=== PATIENT | male | born 1980 | race Caucasian/White ===

== ENCOUNTER 2017-02-22 20:26 | Emergency (ER) | payer SELFPAY ==
[2017-02-22 21:04] LABS: APPEARANCE CLEAR (CLEAR); BILIRUBIN NEGATIVE (NEGATIVE); COLOR YELLOW (YELLOW); GLUCOSE NEGATIVE (NEGATIVE); KETONE NEGATIVE (NEGATIVE); NITRITE NEGATIVE (NEGATIVE); PROTEIN TRACE mg/dL (NEGATIVE); SPECIFIC GRAVITY 1.025 (1.005-1.020); UROBILINOGEN NORMAL (NORMAL)
[2017-02-22 21:12] LABS: BACTERIA FEW /hpf (NONE SEEN); CALCIUM OXALATE CRYSTALS OCC /hpf (NONE SEEN); EPITHELIAL CELLS OCC /hpf (0-5); HYALINE CAST OCC /lpf (NONE SEEN); MUCUS <1+ /lpf (NONE SEEN); RED CELLS - URINE OCC /hpf (0-5); WHITE CELLS - URINE 0-5 /hpf (0-5)
[2017-02-22 21:42] LABS: BASOPHILS 0.5 % (0-2); EOSINOPHILS 7.7 % (0-7); HEMATOCRIT 43.4 % (42.0-54.0); HEMOGLOBIN 14.8 g/dL (13.5-17.5); IMMATURE GRANULOCYTES 0.4 % (0-5); LYMPHOCYTES 25.2 % (15-50); MCH 30.5 pg (26.0-34.0); MCHC 34.1 g/dL (31.0-37.0); MCV 89.5 fL (80.0-100.0); MEAN PLATELET VOLUME 10.3 fL (7.4-10.4); MONOCYTES 10.5 % (2-11); NEUTROPHILS 55.7 % (40-80); PLATELET COUNT 231 10x3/uL (130-400); RBC 4.85 10x6/uL (4.20-6.10); WBC 12.7 10x3/uL (4.8-10.8)
[2017-02-22 22:00] LABS: ALBUMIN 3.5 g/dL (3.4-5.0); ANION GAP 10.7 mmol/L (8-16); BILIRUBIN - TOTAL 0.3 mg/dL (0.2-1.3); CALCIUM 8.7 mg/dL (8.5-10.1); CARBON DIOXIDE 30.9 mmol/L (21.0-32.0); CREATININE - SERUM 1.3 mg/dL (0.6-1.3); POTASSIUM - SERUM 3.6 mmol/L (3.5-5.1); PROTEIN - SERUM 6.3 g/dL (6.4-8.2)
== END 2017-02-22 22:10 | disposition home or self-care (01) ==
LOC: D.ER 20:26
PROVIDERS: Family Medicine
DX: L25.9 Unspecified contact dermatitis, unspecified cause (principal)

== ENCOUNTER 2017-02-28 18:11 | Inpatient (IN) | payer SELFPAY ==
[2017-02-28 20:00] LABS: HEMATOCRIT 41.5 % (42.0-54.0); HEMOGLOBIN 13.8 g/dL (13.5-17.5); MCH 29.9 pg (26.0-34.0); MCHC 33.3 g/dL (31.0-37.0); MCV 89.8 fL (80.0-100.0); MEAN PLATELET VOLUME 9.6 fL (7.4-10.4); PLATELET COUNT 254 10x3/uL (130-400); RBC 4.62 10x6/uL (4.20-6.10); RDW 13.4 % (11.5-14.5); WBC 30.3 10x3/uL (4.8-10.8)
[2017-02-28 20:10] LABS: ANION GAP 9.8 mmol/L (8-16); BILIRUBIN - TOTAL 0.26 mg/dL (0.2-1.3); CALCIUM 8.4 mg/dL (8.5-10.1); CARBON DIOXIDE 29.4 mmol/L (21.0-32.0); CREATININE - SERUM 1.2 mg/dL (0.6-1.3); POTASSIUM - SERUM 3.2 mmol/L (3.5-5.1); PROTEIN - SERUM 6.7 g/dL (6.4-8.2)
[2017-02-28 20:22] LABS: LYMPHOCYTES 20 % (15-50); MONOCYTES 1 % (2-11); NEUTROPHILS 77 % (40-80); PLATELET ESTIMATE NORMAL
[2017-03-01 01:48] VITALS: BMI 29.1
--- NOTE | 2017-03-01 01:53 | NUR ---
RECEIVED FROM ER VIA Betzaida JIANG-NS @200, IV ANTIBONICS WERE GIVEN IN ER, PT IS A&O, UP ADLIB, BED IS LOW, SRX2, CALL LIGHT IN REACH, WILL CONTINUE PLAN OF CARE
--- NOTE | 2017-03-01 04:04 | NUR ---
PT RESTING, GIRLFRIEND AT BEDSIDE, BED IS LOW, SRX2, CALL LIGHT IN REACH, WILL CONTINUE PLAN OF CARE
[2017-03-01 06:33] VITALS: BP 134/68
[2017-03-01 07:40] LABS: BASOPHILS 0.1 % (0-2); EOSINOPHILS 1.2 % (0-7); HEMATOCRIT 39.6 % (42.0-54.0); HEMOGLOBIN 13.5 g/dL (13.5-17.5); IMMATURE GRANULOCYTES 1.7 % (0-5); LYMPHOCYTES 11.3 % (15-50); MCH 30.1 pg (26.0-34.0); MCHC 34.1 g/dL (31.0-37.0); MCV 88.4 fL (80.0-100.0); MEAN PLATELET VOLUME 9.5 fL (7.4-10.4); MONOCYTES 10.4 % (2-11); NEUTROPHILS 75.3 % (40-80); PLATELET COUNT 275 10x3/uL (130-400); RBC 4.48 10x6/uL (4.20-6.10); RDW 13.3 % (11.5-14.5); WBC 32.7 10x3/uL (4.8-10.8)
[2017-03-01 07:46] LABS: CALC OSMOLALITY 266 mosm/kg (275-300); CALCIUM 7.6 mg/dL (8.5-10.1); CARBON DIOXIDE 25.4 mmol/L (21.0-32.0); CHLORIDE - SERUM 100 mmol/L (98-107); CREATININE - SERUM 1.1 mg/dL (0.6-1.3); GLUCOSE 104 mg/dL (74-106); POTASSIUM - SERUM 3.8 mmol/L (3.5-5.1); SODIUM 134 mmol/L (136-145); UREA NITROGEN 9 mg/dL (7-18); eGFR NON AFRICAN AMERICAN 81 mL/min (90-120)
[2017-03-01 09:09] VITALS: BP 143/80
[2017-03-01 12:42] VITALS: BP 145/79
--- NOTE | 2017-03-01 15:58 | NUR ---
ALERT AND ORIENTED X4. RESTING IN BED. RT ARM ELEVATED ON TWO PILLOWS. SWELLING, TENDERNESS, AND REDNESS ACCENDING FROM HAND TO NECK. FIRM AND HOT TO TOUCH. OOZING PURULENT DRAINAGE FROM TOP OF HAND AND AC. NOTIFY DR. SUH OF WORSENING CONDITIONS. ORDER TO CONSULT ORTHO PER . ULTRA SOUND OF UPPER EXTREMITIES ORDERED STAT PER AND RESULTS TO BE CALLED TO HIM. CONTINUE PAIN MANAGEMENT ORDERED. CONTINUE PLAN OF CARE. BED LOCKED AND LOW. CALL LIGHT IN REACH. TWO SIDERAILS UP.
[2017-03-01 16:39] VITALS: BP 146/88
[2017-03-01 19:00] VITALS: BP 178/90
--- NOTE | 2017-03-01 19:25 | NUR ---
RECEIVED REPORT, WILL ASSUME CARE OF PT, ULTRA SOND IN ROOM, WILL CONTINUE PLAN OF CARE
[2017-03-02] VITALS: BP 145/84; BP 152/84
--- NOTE | 2017-03-02 01:06 | NUR ---
COMPLAINS OF ARM PAIN, GAVE DIDULID ORDER
--- NOTE | 2017-03-02 05:15 | NUR ---
ASSESSMENT COMPLETE, SE FLOWSHEET, BED IS LOW, SRX2, CALL LIGHT IN REACH, WILL CONTINUE PLAN OF CARE
--- NOTE | 2017-03-02 06:13 | NUR ---
COMPLAINS OF HEADACHE, DOESN'T WANT DIDULID, GAVE ICE PACK
[2017-03-02 08:00] VITALS: BP 144/83
[2017-03-02 09:59] VITALS: BMI 37.1
--- NOTE | 2017-03-02 11:00 | NUR ---
ALERT AND ORIENTED X4. RESTING IN BED. INITIATE CONTACT ISOLATION PRECAUTIONS ORDERED. DENIES ANY NEEDS. RT ARM ELEVATED ON TWO PILLOWS. BED LOCKED AND LOW.
[2017-03-02 12:00] VITALS: BP 149/91
--- NOTE | 2017-03-02 14:00 | NUR ---
ALERT AND ORIENTED X4. RESTING IN BED. FAMILY AT BEDSIDE. RT CHEST HAIR TRIMMED. CVL DRESSING CHANGED. CONSENTS FOR PROCEDURE SIGNED ON CHART. PRE-OP CHECK LIST COMPLETE. DENIES ANY NEEDS. BED LOCKED AND LOW. CALL LIGHT IN REACH. TWO SIDERAILS UP.
[2017-03-02 16:00] VITALS: BP 158/98
--- NOTE | 2017-03-02 19:47 | NUR ---
RESUMED CARE OF PT, LYING IN BED RESPIRATIONS EVEN AND UNLABORED ON ROOM AIR. LEFT CVL INFUSING NS @ 75. RIGHT ARM IS RED WITH BLISTER LIKE SORES, PAIN 8:10. REQUESTS PAIN SHOT. WILL CONTINUE TO MONTIOR. CALL LIGHT IN REACH. SEE NURSE ASSESSMENT.
--- NOTE | 2017-03-02 20:30 | NUR ---
DILAUDID 1MG IVP FOR RIGHT ARM PAIN. WILL CONTINUE TO MONITOR. CALL LIGHT IN REACH.
[2017-03-02 20:45] VITALS: BP 147/92
[2017-03-03] VITALS (7 sets, daily range): BP systolic 102–155; BP diastolic 53–94
[2017-03-03 06:06] LABS: BASOPHILS 0.1 % (0-2); EOSINOPHILS 2.2 % (0-7); HEMOGLOBIN 12.7 g/dL (13.5-17.5); IMMATURE GRANULOCYTES 1.3 % (0-5); LYMPHOCYTES 10.7 % (15-50); MCH 29.7 pg (26.0-34.0); MCHC 33.4 g/dL (31.0-37.0); MEAN PLATELET VOLUME 9.3 fL (7.4-10.4); MONOCYTES 10.3 % (2-11); NEUTROPHILS 75.4 % (40-80); PLATELET COUNT 282 10x3/uL (130-400); RBC 4.27 10x6/uL (4.20-6.10); RDW 13.4 % (11.5-14.5); WBC 25.8 10x3/uL (4.8-10.8)
[2017-03-03 06:18] LABS: CALC OSMOLALITY 269 mosm/kg (275-300); CALCIUM 7.8 mg/dL (8.5-10.1); CARBON DIOXIDE 27.6 mmol/L (21.0-32.0); CHLORIDE - SERUM 100 mmol/L (98-107); GLUCOSE 116 mg/dL (74-106); POTASSIUM - SERUM 3.5 mmol/L (3.5-5.1); SODIUM 136 mmol/L (136-145); UREA NITROGEN 5 mg/dL (7-18); eGFR NON AFRICAN AMERICAN 90 mL/min (90-120)
--- NOTE | 2017-03-03 12:33 | NUR ---
ALERT AND ORIENTED X4. RESTING IN BED. EKG COMPLETE PLACED ON CHART. CONSENTS SIGNED ON CHART. DENIES SOB. RT ARM ELEVATED ON 2 PILLOWS. GIRL FRIEND AT BEDSIDE. CONTINUE PLAN OF CARE. BED LOCKED AND LOW. CALL LIGHT IN REACH. TWO SIDERAILS UP.
--- NOTE | 2017-03-03 15:42 | NUR ---
ALERT AND ORIENTED X4. PROCEDURE SCHEDULED ESTIMATED TIME TO START WHEN ASKED ANISTHESIA WAS 1430. CALL OR NOW AND ESTIMATED START TIME CHANGED TO 1630 OR 1700. PATIENT VERY UPSET DUE TO BEING NPO 03/02/17 ALL DAY AND DOCTOR CANCELLING PROCEDURE AT 1700 YESTERDAY. PATIENT BEEN NPO SINCE MIDNIGHT TODAY AND PROCEDURE YET TO HAPPEN. PATIENT STATES, "THIS IS MESSED UP AND I'M ABOUT TO GO TO [place] TO GET SOMETHING DONE," WHILE STORMING OUT OF ROOM. APOLOGIZE TO PATIENT AND TRY TO CALM PATIENT. PETEY CARVALHO CALLING SHRINK PIT OPERATOR. CONTINUE PLAN OF CARE AND SAFETY PRECAUTIONS.
--- NOTE | 2017-03-03 15:58 | NUR ---
RETURNS TO ROOM.
--- NOTE | 2017-03-03 17:06 | NUR ---
TAKEN TO PROCEDURE VIA BED.
--- NOTE | 2017-03-03 19:15 | NUR ---
RECIEVED TO ROOM 2111 FROM O.R. VIA BED. VITALS STABLE. DRSGS INTACT TO BACK OF NECK AND RIGHT ARM. NO BLEEDING NOTED. SANDWHICH TRAY AND LEMOM KLETSEL DEHE WINTUN SODA GIVEN AT PT REQUEST. PT CURRENTLY DENIES PAIN. FAMILY AT BE SIDE.
--- NOTE | 2017-03-03 20:36 | NUR ---
HS MED GIVEN WITH FRESH ICE WATER, PT RESTING WELL, RESPERATIONS EVEN AND UNLABORED. BDED LOW, CL IN REACH.
--- NOTE | 2017-03-03 22:05 | NUR ---
DILAUDID 1 MG GIVEN AT PT REQUEST FOR C/O PAIN TO RIGHT ARM.
[2017-03-04 00:46] VITALS: BP 119/69
--- NOTE | 2017-03-04 01:40 | NUR ---
LEFT ARM RED AND PT SCRATCHING AT IT. BENEDRYL 25 MG GIVEN PO FOR C/O ITCHING TO LEFT ARM.
[2017-03-04 04:25] VITALS: BP 121/88
--- NOTE | 2017-03-04 06:16 | OP ---
PATIENT NAME: CLIFTON LIPSCOMB MEDICAL RECORD: [id number] :81 LOCATION:D.M2 D.2112 ADMISSION DATE:03/01/17 SURGEON: ABEL WILLS MD DATE OF OPERATION: 03/03/2017 PREOPERATIVE DIAGNOSES: Multiple abscesses of the right upper extremity and neck posterior right aspect. POSTOPERATIVE DIAGNOSES: Multiple abscesses of the right upper extremity and neck posterior right aspect. PROCEDURE: Excisional debridement of 6 different locations on the right upper extremity and neck. SURGEON: Abel Wills MD. ANESTHESIA: General. INTRAOPERATIVE COMPLICATIONS: None. SUMMARY OF PATHOLOGIC FINDINGS: The patient had multiple abscesses, 3 on the back of the hand, one on the mid forearm, one in the antecubital fossa and one on the posterior aspect of the patient's neck. Each one that was opened had kp pus. Each one was cultured and each one was curettaged as well as sharply debrided. OPERATIVE SUMMARY IN DETAIL: After obtaining the appropriate preoperative orthopedic surgery consent as well as anesthetic consultation, evaluation and clearance, the patient was brought to the operating room and placed on the operating table in supine position. After adequate general laryngeal mask airway was administered, the patient was placed in left lateral decubitus position. All pressure points were well padded to include down leg peroneal pad as well as axillary roll. The patient was held firmly to the operating table using the vacuum pack suction system. Right upper extremity and shoulder were then prepped and draped in routine sterile fashion. Attention was first turned to the back of the hand. A scalpel incision was made, serially and sequentially, of all the abscesses as described above. Cultures were taken and then curettage was carried out. All were subcutaneous down the fascia, none were deeper. After copious curettage and lavage, each was then packed with half-inch iodoform gauze. Sterile dressings were applied. Having completed this, the neck abscess was prepped completely separately. Incision was made here and likewise gross kp pus was noted. This was curettaged and irrigated and then also packed with half-inch iodoform gauze. Sterile dressings were applied here as well. The patient was then awakened and taken to recovery room in stable condition. All final needle and sponge counts were correct. TRANSINT:[id number] Voice Confirmation ID: [id number] DOCUMENT ID: [id number] OPERATIVE REPORT [id number] CLIFTON LIPSCOMB MD, ABEL TINSLEY at 0616 CC: [id number] DICTATION DATE: 03/03/17 183 BAND SALVAGER: 03/03/172106 ADM IN [place] [id number] [place] [id number]
[2017-03-04 06:23] LABS: CALC OSMOLALITY 271 mosm/kg (275-300); CHLORIDE - SERUM 101 mmol/L (98-107); CREATININE - SERUM 0.9 mg/dL (0.6-1.3); GLUCOSE 92 mg/dL (74-106); POTASSIUM - SERUM 3.6 mmol/L (3.5-5.1); SODIUM 137 mmol/L (136-145); UREA NITROGEN 6 mg/dL (7-18); eGFR NON AFRICAN AMERICAN > 90 mL/min (90-120)
--- NOTE | 2017-03-04 06:35 | NUR ---
PT RESTING IN BED WITH NO DISTRESS. CALL LIGHT IN REACH. CPOC.
[2017-03-04 06:58] LABS: WBC 20.5 10x3/uL (4.8-10.8)
[2017-03-04 06:59] LABS: HEMOGLOBIN 11.8 g/dL (13.5-17.5); MCH 29.6 pg (26.0-34.0); MCHC 32.8 g/dL (31.0-37.0); MCV 90.2 fL (80.0-100.0); MEAN PLATELET VOLUME 9.8 fL (7.4-10.4); PLATELET COUNT 319 10x3/uL (130-400); RBC 3.99 10x6/uL (4.20-6.10); RDW 13.4 % (11.5-14.5)
[2017-03-04 07:24] LABS: EOSINOPHILS 11 % (0-7); LYMPHOCYTES 17 % (15-50); MONOCYTES 9 % (2-11); NEUTROPHILS 55 % (40-80); PLATELET ESTIMATE INCREASED
[2017-03-04 08:04] VITALS: BP 128/80
[2017-03-04 11:37] VITALS: BP 126/83
--- NOTE | 2017-03-04 13:00 | NUR ---
REPORT GIVE TO PETEY MORGAN TO RESUME PLAN OF CARE.
--- NOTE | 2017-03-04 13:40 | NUR ---
PATIENT IS SLEEPING UPON ENTERING ROOM, HE NODDED HIS HEAD UP AND DOWN TO ENSURE HE NOTED THAT NURSE WAS IN HIS ROOM. PATIENT CONTINUES TO REST.
[2017-03-04 15:31] VITALS: BP 144/84
[2017-03-04 19:00] VITALS: BP 134/81
[2017-03-05] VITALS: BP 117/72
--- NOTE | 2017-03-05 00:11 | NUR ---
RESTING WITH EYES CLOSED, RESPERATIONS EVEN, NO S/S DISTRESS NOTED.
--- NOTE | 2017-03-05 04:58 | NUR ---
CALL LIGHT IN REACH. WILL CONTINUE WITH PLAN OF CARE.
[2017-03-05 05:30] LABS: BASOPHILS 0.2 % (0-2); EOSINOPHILS 4.4 % (0-7); HEMATOCRIT 35.3 % (42.0-54.0); HEMOGLOBIN 11.8 g/dL (13.5-17.5); IMMATURE GRANULOCYTES 3.3 % (0-5); LYMPHOCYTES 12.9 % (15-50); MCH 29.8 pg (26.0-34.0); MCHC 33.4 g/dL (31.0-37.0); MCV 89.1 fL (80.0-100.0); MONOCYTES 13.1 % (2-11); NEUTROPHILS 66.1 % (40-80); PLATELET COUNT 320 10x3/uL (130-400); RBC 3.96 10x6/uL (4.20-6.10); RDW 13.3 % (11.5-14.5); WBC 20.3 10x3/uL (4.8-10.8)
[2017-03-05 05:56] LABS: CALC OSMOLALITY 271 mosm/kg (275-300); CALCIUM 8.1 mg/dL (8.5-10.1); CARBON DIOXIDE 26.8 mmol/L (21.0-32.0); CHLORIDE - SERUM 101 mmol/L (98-107); CREATININE - SERUM 0.9 mg/dL (0.6-1.3); GLUCOSE 107 mg/dL (74-106); POTASSIUM - SERUM 3.8 mmol/L (3.5-5.1); SODIUM 137 mmol/L (136-145); UREA NITROGEN 7 mg/dL (7-18); eGFR NON AFRICAN AMERICAN > 90 mL/min (90-120)
--- NOTE | 2017-03-05 07:19 | NUR ---
PT UP TO BATHROOM AT THIS TIME DENIES ANY NEEDS. IN BED ASLEEP. WILL CONT TO MONITOR
[2017-03-05 08:00] VITALS: BP 148/84
[2017-03-05 12:00] VITALS: BP 138/75
--- NOTE | 2017-03-05 15:47 | NUR ---
Nutrition Follow Up: Pt was asleep x [address] Interview deferred. Spoke with nursing and asked that Shaq be encouraged to promote wound healing. Pt is eating 67% meal avg on a regular diet. +BM 03/03/17. Wt stable. Meds and labs reviewed. Rec continue current diet. Will send Shaq BID. RD following.
[2017-03-05 16:00] VITALS: BP 145/85
--- NOTE | 2017-03-05 17:39 | NUR ---
PT SITTING UP IN BED DENIES NEEDS
--- NOTE | 2017-03-05 19:40 | NUR ---
NURSE CHARGE RN AT BEDSIDE TO OBTAIN VITALS, CALL LIGHT IN REACH. WILL CONTINUE WITH PLAN OF CARE.
[2017-03-05 20:00] VITALS: BP 134/83
--- NOTE | 2017-03-05 21:29 | NUR ---
PATIENT IS ALERT IN BED, FAMILY AT BEDSIDE. CALL LIGHT IN REACH, DENIES ANY NEEDS AT THIS TIME. WILL CONTINUE TO MONITOR.
[2017-03-06] VITALS: BP 123/73
[2017-03-06 03:49] LABS: BASOPHILS 0.2 % (0-2); EOSINOPHILS 4.4 % (0-7); HEMATOCRIT 34.6 % (42.0-54.0); HEMOGLOBIN 11.3 g/dL (13.5-17.5); IMMATURE GRANULOCYTES 4.2 % (0-5); MCH 29.2 pg (26.0-34.0); MCHC 32.7 g/dL (31.0-37.0); MCV 89.4 fL (80.0-100.0); MONOCYTES 10.9 % (2-11); NEUTROPHILS 61.3 % (40-80); PLATELET COUNT 319 10x3/uL (130-400); RBC 3.87 10x6/uL (4.20-6.10); RDW 13.2 % (11.5-14.5); WBC 17.1 10x3/uL (4.8-10.8)
[2017-03-06 04:00] VITALS: BP 125/80
[2017-03-06 04:01] LABS: CALC OSMOLALITY 279 mosm/kg (275-300); CALCIUM 8.4 mg/dL (8.5-10.1); CARBON DIOXIDE 30.2 mmol/L (21.0-32.0); CHLORIDE - SERUM 105 mmol/L (98-107); CREATININE - SERUM 0.8 mg/dL (0.6-1.3); GLUCOSE 102 mg/dL (74-106); POTASSIUM - SERUM 3.9 mmol/L (3.5-5.1); SODIUM 141 mmol/L (136-145); VANCOMYCIN - TROUGH 17.2 ug/mL (10.0-20.0); eGFR NON AFRICAN AMERICAN > 90 mL/min (90-120)
[2017-03-06 04:02] LABS: UREA NITROGEN 10 mg/dL (7-18)
--- NOTE | 2017-03-06 07:18 | NUR ---
PT LAYING TO R SIDE SLEEPING NO S/S DITRESS NOTED RR EVEN AND UNLABORED. GIRLFRIEND IN BED BESIDE HIM. WILL CONT TO MONITOR
[2017-03-06 08:03] VITALS: BP 138/89
--- NOTE | 2017-03-06 08:47 | NUR ---
PT WANTS TO WAIT A LITTLE WHILE FOR DSNG TO BE CHANGED. PT WILL NOTIFY ME WHEN READY
--- NOTE | 2017-03-06 12:36 | OP ---
PATIENT NAME: CLIFTON LIPSCOMB MEDICAL RECORD: [id number] :81 LOCATION:D.M2 D.2 ADMISSION DATE:03/01/17 SURGEON: KATIE MCKEON MD DATE OF OPERATION: 02/28/2017 PREOPERATIVE DIAGNOSES: 1. Right upper extremity cellulitis. 2. Sepsis. POSTOPERATIVE DIAGNOSES: 1. Right upper extremity cellulitis. 2. Sepsis. PROCEDURE: Left subclavian vein triple-lumen central venous line placement. SURGEON: Katie Mckeon MD REPORT OF PROCEDURE: The patient's left chest was prepped and draped in sterile fashion, a 5 cc of 1% lidocaine was infused into the subcutaneous tissues. A needle was then used to cannulate the left subclavian vein. The guidewire was advanced with ease. Over this wire, a dilator was placed followed by the triple lumen catheter. The catheter aspirated nonpulsatile dark blood and flushed easily in all 3 ports. This was sutured into place with 3-0 silk ties and dressed appropriately. COMPLICATIONS: None. CONDITION: Stable. ANESTHESIA: Local. BLOOD LOSS: Minimal. Procedure done in the ER at the bedside. TRANSINT:[id number] Voice Confirmation ID: [id number] DOCUMENT ID: [id number] KATIE MCKEON MD at 1236 CC: [id number] DICTATION DATE: 02/28/17 2343 LACING PRESSER: 03/01/17 0020 ADM IN [facility] [address] [place] [address]
[2017-03-06 12:38] VITALS: BP 134/80
[2017-03-06] MEDS ORDERED: VIBRAMYCIN 100100 MG PO (13:42)
[2017-03-06] MEDS ORDERED: HYDROCODONE-APA1 TAB PO (13:43)
--- NOTE | 2017-03-06 14:21 | NUR ---
Patient Name: CLIFTON LIPSCOMB Admission Status: ER Accout number: [id number] Admission Date: 03-01-2017 : 1980 Admission Diagnosis:SEPSIS, UNSPECIFIED ORGANISM Attending: ASHOK SUH Current LOS: 5 Anticipated DC Date: Planned Disposition: Home Primary Insurance: UNINSURED DISCOUNT PLAN Discharge Planning Comments: * Is the patient Alert and Oriented? Yes 0 * How many steps to enter\exit or inside your home? 5 W/RAMP 0 * PCP NONE 0 * Pharmacy [facility] [address] 0 * Preadmission Environment Home with Family 0 * ADLs Independent 0 * Equipment None 0 * Other Equipment NO MEDICAL EQUIPMENT PROVIDER PREFERENCE 0 * List name and contact numbers for known caregivers / representatives who currently or will assist patient after discharge: JANNETTE LOWERY, GIRLFRIEND, STERLING BENAVIDEZ, GRANDMOTHER, 0 * Community resources currently utilized None 0 * Please name any agencies selected above. NONE 0 * Additional services required to return to the preadmission environment? Yes * Can the patient safely return to the preadmission environment? Yes 0 * Has this patient been hospitalized within the prior 30 days at any hospital? No 0 CM RECEIVED HOME HEALTH ORDER FOR DAILY WOUND CARE. CM MET WITH PT IN ROOM TO DISCUSS DISCHARGE PLANNING AND NEEDS. PT REPORTS LIVING AT HOME INDEPENDENTLY WITH HIS GRANDMOTHER AND COUSIN. 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 PT HAS NO MEDICAL EQUIPMENT AND NO OUTSIDE SERVICES ASSISTING IN THE HOME. CM DISCUSSED AVAILABILITY OF HOME HEALTH, REHAB SERVICES AND MEDICAL EQUIPMENT. PT WOULD ACCEPT HOME HEALTH, HAS NO RESOURCES TO PAY FOR THE SERVICE AND THE HOSPITAL HAS APPLIED FOR MEDICAID FOR THE PATIENT. PT REPORTS HIS GIRLFRIEND WILL PICK HIM UP FOR DISCHARGE HOME. CM CALLED [facility], SPOKE TO RIDGE WHO REPORTS THEY HAVE ALREADY ACCEPTED A PRO [facility] TODAY AND EVEN IF SHE WAS ABLE, IT WOULD BE THURSDAY AT THE EARLIEST THAT THEY COULD SEE PT. CM CALLED [facility], SPOKE TO NARAYAN WHO REPORTS THEY WILL NOT ACCEPT MEDICAID PENDING. CM CALLED EUSEBIO AT [facility] WHO ADVISED THEY WILL NOT ACCEPT MEDICAID PENDING. CM CALLED TARAH AT [facility] WHO ADVISED THEY WILL NOT ACCEPT MEDICAID PENDING. CM CALLED FRANCESCO AT [facility] WHO, AFTER CHECKING, REPORTS HAVING NO OPENINGS FOR NEW PATIENTS AT THIS TIME. CM SPOKE TO PT IN ROOM, DISCUSSED NO ACCEPTING HOME HEALTH AGENCY AND DISCUSSED POSSIBLE OUTPATIENT CARE ON A DAILY BASIS; PT REPORTS ABILITY TO GET TO THE HOSPITAL ON A DAILY BASIS IF NEEDED. CM SPOKE TO RN [facility] WHO REPORTS PT'S COUSIN IS A NURSE AND WILL BE PROVIDING DAILY WOUND CARE FOR PT AFTER DISCHARGE; PT HAS AGREED TO THIS PLAN, DR. SUH HAS BEEN INFORMED AND IS ALSO IN AGREEMENT WITH DISCHARGE PLAN. NO FURTHER NEEDS IDENTIFIED AT THIS TIME. CM TO FOLLOW AND ASSIST IF NEEDED. PT WILL DISCHARGE HOME WITH FAMILY ASSISTANCE; FAMILY MEMBER IS NURSE AND WILL TAKE CARE OF DAILY WOUND CARE. Investigator Claims: Michel Adams
--- NOTE | 2017-03-06 14:34 | NUR ---
dc pt central line with cath tip intact. held pressure for 5 minutes. no bleeding noted. pt is being dc home. waiting on dc paperwork to sign pt out, pt getting dressed.
--- NOTE | 2017-03-06 14:57 | NUR ---
WENT OVER DC INSTRUCTIONS WITH PT PT VERBALIZES UNDERSTANDING. GIVEN PT SCRIPT FOR [place]CO AND DRESSING CHANGE INSTRUCTIONS. PT REFUSED WHEELCHAIR AND WALKED OUT WITH GIRLFRIEND.
== END 2017-03-06 14:58 | disposition home or self-care (01) | DRG 854 ==
LOC: D.ER 18:11 → D.M2 03-01 00:05
PROVIDERS: Family Medicine; Physician Assistant Medical; Student in an Organized Health Care Education/Training Program; ADMIT Family Medicine
PROC: 02HV33Z Insertion of Infusion Device into Superior Vena Cava, Percutaneous Approach (ICD-10-PCS; principal; 2017-02-28)
PROC: 0JB40ZZ Excision of Right Neck Subcutaneous Tissue and Fascia, Open Approach (ICD-10-PCS; 2017-03-03)
PROC: 0JBJ0ZZ Excision of Right Hand Subcutaneous Tissue and Fascia, Open Approach (ICD-10-PCS; 2017-03-03)
PROC: 0JBD0ZZ Excision of Right Upper Arm Subcutaneous Tissue and Fascia, Open Approach (ICD-10-PCS; 2017-03-03)
PROC: 0JBG0ZZ Excision of Right Lower Arm Subcutaneous Tissue and Fascia, Open Approach (ICD-10-PCS; 2017-03-03)
DX: A41.9 Sepsis, unspecified organism (principal); L03.113 Cellulitis of right upper limb; B95.62 Methicillin resistant Staphylococcus aureus infection as the cause of diseases classified elsewhere; F17.200 Nicotine dependence, unspecified, uncomplicated; R51 Headache; L02.423 Furuncle of right upper limb